=== PATIENT | female | born 1945 | race Caucasian/White ===

== ENCOUNTER 2024-06-09 09:14 | Emergency (ER) | payer MEDICARE, SELFPAY ==
[2024-06-09] VITALS (10 sets, daily range): BP systolic 78–127; BP diastolic 39–74; PULSE 67–73; RESP 15–16; TEMP 36.4–36.6; O2SAT 95–100; BMI 23.8
--- NOTE | 2024-06-09 09:18 | XRR_ITS ---
PROCEDURE INFORMATION: Exam: XR Chest Exam date and time: 06/09/2024 10:04 AM Age: 78 years old Clinical indication: Other: Vomiting blood TECHNIQUE: Imaging protocol: Radiologic exam of the chest. Views: 1 view. COMPARISON: No relevant prior studies available. FINDINGS: Lungs: Unremarkable. No consolidation. Pleural spaces: Unremarkable. No pleural effusion. No pneumothorax. Heart/Mediastinum: The heart is borderline enlarged. There is calcified plaque involving the aorta. Bones/joints: Unremarkable. XR/XR chest 1V portable [id number] IMPRESSION: 1. Borderline cardiomegaly.
[2024-06-09] MEDS: pantoprazole 40 mg SDV 80 MG IVP (09:27)
[2024-06-09] MEDS: ondansetron 2 mg/ML SDV 2 mL 4 MG IVP (09:29)
[2024-06-09] MEDS: octreotide 100 mcg/mL SDV 50 MCG IVP (09:31)
--- NOTE | 2024-06-09 09:34 | CTR_ITS ---
PROCEDURE INFORMATION: Exam: CT Abdomen And Pelvis Without Contrast Exam date and time: 06/09/2024 10:13 AM Age: 78 years old Clinical indication: Vomiting TECHNIQUE: Imaging protocol: Computed tomography of the abdomen and pelvis without contrast. Radiation optimization: All CT scans at this facility use at least one of these dose optimization techniques: automated exposure control; mA and/or kV adjustment per patient size (includes targeted exams where dose is matched to clinical indication); or iterative reconstruction. COMPARISON: CR (CHEST, ) 06/09/2024 10:04 AM RADIATION DOSE METRICS: Total DLP (mGy-cm): 576.4 FINDINGS: Lungs: Lung bases are clear as visualized. Heart: The heart is borderline enlarged. There is no evidence of a significant pericardial effusion. There is a large amount of calcified plaque involving the coronary vessels. Diaphragm: There is a small hiatal hernia. Liver: The liver has a cirrhotic morphology. The liver otherwise has a normal noncontrast appearance. Gallbladder and biliary ducts: There are gallstones within the gallbladder. There are punctate calcifications regional to the common bile duct which may or may not be within the duct. No definite intra or extrahepatic biliary ductal dilatation is appreciated on this noncontrast exam. Pancreas: Normal. No ductal dilation. Spleen: Normal. No splenomegaly. Adrenal glands: Normal. No mass. Kidneys and ureters: Normal. No hydronephrosis. Stomach and bowel: No dilated loops of large or small bowel is appreciated. There is mild wall thickening involving the ascending colon and hepatic flexure. This could be related to a colitis or hepatic colopathy. Appendix: The appendix is not definitely identified. Intraperitoneal space: Unremarkable. No free air. No significant fluid collection. Vasculature: The visualized portion of the ascending aorta is dilated measuring 4.5 cm in size. The descending thoracic aorta measures 2.8 cm in size. The abdominal aorta is normal in caliber. There is calcified plaque involving the aorta and its branch vessels. Lymph nodes: Unremarkable. No enlarged lymph nodes. Urinary bladder: Unremarkable as visualized. Reproductive: Unremarkable as visualized. Bones/joints: There are postoperative changes involving the proximal femurs. Soft tissues: Unremarkable. CT/CT abdomen pelvis wo con [id number] IMPRESSION: 1. Cirrhotic morphology to the liver. 2. Cholelithiasis. There are tiny punctate calcifications regional to the common bile duct. These may or may not be within the common bile duct. No definite biliary ductal dilatation is identified on this noncontrast exam. If there is a clinical concern for a ductal stone or ductal obstruction, recommend correlation with ERCP or MRCP. 3. Large volume ascites. 4. Mild wall thickening involving the ascending colon and hepatic flexure. This could be related to a colitis or hepatic colopathy. 5. 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
--- NOTE | 2024-06-09 09:35 | W.ED.GIBLEED ---
HPI - GI Bleed General: Chief complaint: GI Bleed Stated complaint: vomiting blood Time Seen by Provider: 06/09/24 09:16 Source: patient Mode of arrival: ambulatory Limitations: no limitations History of Present Illness: 78-year-old female history of cirrhosis here from senior living with hematemesis. Per EMS she had had hematemesis at the senior living had 1 large amount and route. She has some slight confusion does have a history of cirrhosis she denies having any known histories of esophageal varices. Denies any pain blood pressure normal senior living EMS states her pressure was in 80s here is 100/52 currently. Associated symptoms: Reports nausea and vomiting; Denies abdominal pain, chills, fever(s), headache(s) or rash Related Data Allergies Allergy/AdvReac Type Severity Reaction Status Date / Time No Known Allergies Allergy Verified 06/09/24 09:22 Review of Systems Const: Denies: fever(s), chills, body aches or change in appetite ENMT: Denies: throat pain or dental pain Card: Denies: chest pain Resp: Denies: dyspnea GI: Reports: nausea and vomiting; Denies: abdominal pain or diarrhea : Denies: dysuria Musc: Denies: neck pain or back pain Skin/Breast: Denies: rash Neuro: Denies: headache(s) Physical Exam Const: COMMON NORMALS: patient oriented x3 GENERAL APPEARANCE: ill appearing HENMT: COMMON NORMALS: normocephalic and atraumatic HEAD & SCALP: normocephalic and atraumatic Eye: COMMON NORMALS: Equal, round and reactive pupils present and EOMs intact bilaterally PUPIL: Yes Equal, round and reactive pupils present Neck/C-Spine: COMMON NORMALS: full ROM and supple Chest: COMMONS NORMALS: normal inspection of the chest and normal palpation of entire chest wall Resp: COMMON NORMALS: normal respiratory effort, No retractions, No use of accessory muscles and clear to auscultation bilaterally AUSCULTATION: clear to auscultation bilaterally Cardio: COMMON NORMALS: regular rate, regular rhythm and No murmurs present (Cardio) RATE: regular rate RHYTHM: regular rhythm GI: COMMON NORMALS: Normal to inspection, nondistended, normoactive bowel sounds present, Soft to palpation, non-tender and no masses PALPATION: Yes Soft to palpation Extremity: COMMON NORMALS: normal to inspection and full ROM Neuro: COMMON NORMALS: patient oriented x3, moves all extremities and no focal motor deficits Psych: COMMON NORMALS: mental status grossly normal, Normal thought process present and cooperative THOUGHT PROCESS: Normal thought process present Skin: COMMON NORMALS: no rashes or lesions noted and no wounds GENERAL SKIN EXAM: no rashes or lesions noted Course Vital Signs: Vital signs: Vital Signs Temperature 97.7 F 06/09/24 11:16 Pulse Rate 73 06/09/24 11:22 Respiratory Rate 16 06/09/24 11:22 Blood Pressure 124/61 06/09/24 11:22 Pulse Oximetry 100 06/09/24 11:22 Oxygen Delivery Me thod Room Air 06/09/24 11:22 MDM - GI Bleed Medical Decision Making Patient presents here with an upper GI bleed patient has had hypotensive here did give her octreotide Protonix gave her FFP and packed red cells. I spoke to surgeon on-call Dr. Peguero feels patient needs GI due to her history of cirrhosis and possibility of esophageal varices spoke to [facility] will transfer there for higher level of care of GI Medical Records I reviewed the patient's medical records. Lab Data I reviewed the patient's lab results. 06/09/24 09:37 06/09/24 09:37 Radiology Impressions Chest X-Ray 06/09/24 09:18 IMPRESSION: 1. Borderline cardiomegaly. Abdomen/Pelvis CT 06/09/24 09:34 IMPRESSION: 1. Cirrhotic morphology to the liver. 2. Cholelithiasis. There are tiny punctate calcifications regional to the common bile duct. These may or may not be within the common bile duct. No definite biliary ductal dilatation is identified on this noncontrast exam. If there is a clinical concern for a ductal stone or ductal obstruction, recommend correlation with ERCP or MRCP. 3. Large volume ascites. 4. Mild wall thickening involving the ascending colon and hepatic flexure. This could be related to a colitis or hepatic colopathy. 5. 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 Laboratory Results WBC 4.66 10^3/uL (3.29-11.43) 06/09/24 09:37 RBC 2.81 10^6/uL (3.85-5.65) L 06/09/24 09:37 Hgb 8.10 g/dL (11.27-16.99) L 06/09/24 09:37 Hct 26.0 % (36-47) L 06/09/24 09:37 MCV 92.5 fl (85-98) 06/09/24 09:37 MCH 28.8 pg (27-33) 06/09/24 09:37 MCHC 31.2 g/dL (30-55) 06/09/24 09:37 RDW 15.3 % (12.1-15.1) H 06/09/24 09:37 Plt Count 222 10^3/cmm (157-399) 06/09/24 09:37 MPV 10.1 fL (7.4-10.4) 06/09/24 09:37 Neut % (Auto) 71.5 % 06/09/24 09:37 Lymph % (Auto) 17.4 % 06/09/24 09:37 [place] % (Auto) 8.2 % 06/09/24 09:37 Eos % (Auto) 1.7 % 06/09/24 09:37 Baso % (Auto) 0.6 % 06/09/24 09:37 Neut # (Auto) 3.33 10^3/uL (1.8-7.7) 06/09/24 09:37 Lymph # (Auto) 0.8 10^3/uL (0.8-4.8) 06/09/24 09:37 [place] # (Auto) 0.4 10^3/uL (0.2-0.9) 06/09/24 09:37 Eos # (Auto) 0.1 10^3/uL (0.0-0.8) 06/09/24 09:37 Baso # (Auto) 0.0 10^3/uL (0.0-0.1) 06/09/24 09:37 Nucleated RBC % (auto) 0 % 06/09/24 09:37 Nucleated RBCs # 0.0 /100WBC 06/09/24 09:37 PT 15.10 SECONDS (12.1-14.9) H 06/09/24 09:37 INR 1.12 (0.8-1.2) 06/09/24 09:37 Sodium 134 mmol/L (136-145) L 06/09/24 09:37 Potassium 5.7 mmol/L (3.5-5.1) H 06/09/24 09:37 Chloride 103 mmol/L (98-107) 06/09/24 09:37 Carbon Dioxide 17 mmol/L (22-29) L 06/09/24 09:37 Anion Gap 19.7 (5-19) H 06/09/24 09:37 BUN 54 mg/dL (8-23) H 06/09/24 09:37 Creatinine 2.9 mg/dL (0.5-0.9) H 06/09/24 09:37 GFR Calculation Not Reportable 06/09/24 09:37 Glucose 126 mg/dL (65-115) H 06/09/24 09:37 Calculated Osmolality 294 mOsm/kg (285-295) 06/09/24 09:37 Calcium 8.2 mg/dL (8.5-10.5) L 06/09/24 09:37 Total Bilirubin 0.4 mg/dL (0.15-1.2) 06/09/24 09:37 AST 35 U/L (0-32) H 06/09/24 09:37 ALT 18 U/L (0-33) 06/09/24 09:37 Alkaline Phosphatase 109 U/L (35-105) H 06/09/24 09:37 Total Protein 6.3 g/dL (6.6-8.7) L 06/09/24 09:37 Albumin 2.6 g/dL (3.5-5.2) L 06/09/24 09:37 Globulin 3.7 g/dL (1.3-4.6) 06/09/24 09:37 Blood Type AB Positive 06/09/24 09:35 Rho(D) Type Rh positive 06/09/24 09:35 Antibody Screen Negative 06/09/24 09:35 Crossmatch See Detail 06/09/24 09:35 All radiology interpretation(s) finalized by discharge Critical Care Time Critical Care Time: Critical Care Time: Yes Total Critical Care Time: 50 Attestation: The high probability of a clinically significant, sudden or life threatening deterioration of the patient'sgi system(s) required my full and direct attention, intervention and personal management. The critical care time is as shown. This time is in addition to time spent performing any reported procedures but includes the following: [x] Data and vital sign review and interpretation [x] Patient assessment, examination and intervention [x] Documentation [x] Medication orders and management Discharge Plan Discharge Patient Disposition: Xfer Short-Term Hosp Clinical Impression: Upper gastrointestinal hemorrhage Condition: Stable Referrals: Henry Villanueva DO [Primary Care Provider] - Print Language: Setswana Coding Level of Care Code ED Marine Tower Operator for Paulina Foster
[2024-06-09 09:44] LABS: Basophils % 0.6 %; Eosinophils # 0.1 10^3/uL (0.0-0.8); Eosinophils % 1.7 %; Lymphocytes # 0.8 10^3/uL (0.8-4.8); Lymphocytes % 17.4 %; Mean Corpuscular HGB Conc 31.2 g/dL (30-55); Mean Corpuscular Hemoglobin 28.8 pg (27-33); Mean Corpuscular Volume 92.5 fl (85-98); Mean Platelet Volume 10.1 fL (7.4-10.4); Monocytes # 0.4 10^3/uL (0.2-0.9); Monocytes % 8.2 %; Neutrophils # 3.33 10^3/uL (1.8-7.7); Neutrophils % 71.5 %; Nucleated Red Blood Cells % 0 %; Platelet Count 222 10^3/cmm (157-399); Red Blood Count 2.81 10^6/uL (3.85-5.65); Red Cell Distribution Width 15.3 % (12.1-15.1); White Blood Count 4.66 10^3/uL (3.29-11.43)
[2024-06-09] MEDS: tranexamic acid 1,000 MG/100 ML PREMIX 600 MG IV ×2 (09:53→09:54)
[2024-06-09 10:00] LABS: INR 1.12 (0.8-1.2)
[2024-06-09 10:04] LABS: Alanine Aminotransferase 18 U/L (0-33); Albumin Level 2.6 g/dL (3.5-5.2); Alkaline Phosphatase 109 U/L (35-105); Anion Gap 19.7 (5-19); Blood Urea Nitrogen 54 mg/dL (8-23); Calcium 8.2 mg/dL (8.5-10.5); Carbon Dioxide 17 mmol/L (22-29); Chloride 103 mmol/L (98-107); Creatinine Clr Calc Pharmacy 14.1763; Globulin 3.7 g/dL (1.3-4.6); Glucose 126 mg/dL (65-115); Osmolality Calculated 294 mOsm/kg (285-295); Potassium 5.7 mmol/L (3.5-5.1); Sodium 134 mmol/L (136-145); Total Bilirubin 0.4 mg/dL (0.15-1.2); Total Protein 6.3 g/dL (6.6-8.7)
[2024-06-09 10:05] LABS: Aspartate Amino Transferase 35 U/L (0-32)
[2024-06-09] MEDS: octreotide 500 MCG in sodium chloride 0.9% (100 ml) 100 ML 10.1 MCG IV (11:09)
[2024-06-09] MEDS: sodium chloride 0.9% 500 ML 999 ML IV (11:10)
== END 2024-06-09 13:19 | disposition short-term general hospital (02) ==
PROVIDERS: Emergency Provider Emergency Medicine; PCP Internal Medicine
DX: K92.2 Gastrointestinal hemorrhage, unspecified (principal)
CPT/HCPCS: 36430; 71045; 74176; 80053; 85025; 85610; 86850; 86900; 86920; 86927; 96361; 96374; 96375; 99285; J2354; J2405; J2470; J7040; J9999; P9017; P9040

== ENCOUNTER 2024-09-23 07:57 | Outpatient (CLI) | payer MEDICARE, OTHER, SELFPAY ==
--- NOTE | 2024-09-23 08:03 | USR_ITS ---
PROCEDURE INFORMATION: Exam: US Abdomen; Limited Exam date and time: 09/23/2024 8:14 AM Age: 79 years old Clinical indication: Condition or disease; Liver condition; Cirrhosis; Additional info: Cirrhosis of liver w/ascites TECHNIQUE: Imaging protocol: Real time ultrasound of the abdomen with image documentation. Limited exam focused on the region of clinical interest. COMPARISON: CT abdomen pelvis wo con [id number] 06/09/2024 10:13 AM FINDINGS: Liver: Cirrhotic morphology of the liver. Heterogeneous echotexture. No focal lesion. Appears mildly shrunken. Measures 14.2 cm craniocaudal. Gallbladder: Cholelithiasis. Mild gallbladder wall thickening (5 mm). Pancreas: Pancreas is not seen. Right kidney: Atrophic right kidney. Measures 7.6 cm craniocaudal. Intraperitoneal space: Moderate volume ascites. US/US abdomen limited [id number] IMPRESSION: 1. Cirrhotic morphology of the liver. No focal lesion. 2. Cholelithiasis. Gallbladder wall thickening is nonspecific in the setting of cirrhosis and ascites. 3. Moderate ascites.
== END 2024-09-23 07:58 | disposition home or self-care (01) ==
LOC: RAD 07:58
PROVIDERS: PCP Internal Medicine; Visit Provider Nurse Practitioner
DX: K74.60 Unspecified cirrhosis of liver (principal); K80.20 Calculus of gallbladder without cholecystitis without obstruction; R18.8 Other ascites; R93.2 Abnormal findings on diagnostic imaging of liver and biliary tract; N26.1 Atrophy of kidney (terminal); R93.3 Abnormal findings on diagnostic imaging of other parts of digestive tract
CPT/HCPCS: 76705

== ENCOUNTER 2024-10-10 01:55 | Emergency (ER) | payer MEDICARE, OTHER, SELFPAY ==
[2024-10-10 01:56] VITALS: BP 122/61; PULSE 120; RESP 16; TEMP 36.8; O2SAT 93; BMI 21.9
--- NOTE | 2024-10-10 02:13 | CTR_ITS ---
PROCEDURE INFORMATION: Exam: CT Head Without Contrast Exam date and time: 10/10/2024 3:10 AM Age: 79 years old Clinical indication: Injury or trauma; Fall; Blunt trauma (contusions or hematomas) and laceration; Consciousness not specified; Head, generalized; Additional info: Trauma, lac, fell from bed TECHNIQUE: Imaging protocol: Computed tomography of the head without contrast. Radiation optimization: All CT scans at this facility use at least one of these dose optimization techniques: automated exposure control; mA and/or kV adjustment per patient size (includes targeted exams where dose is matched to clinical indication); or iterative reconstruction. COMPARISON: No relevant prior studies available. RADIATION DOSE METRICS: Total DLP (mGy-cm): 1135.8 FINDINGS: Brain: No acute infarction, hemorrhage, mass, or extra-axial fluid collection is identified. No midline shift. Chronic white matter microangiopathy and generalized atrophy. Cerebral ventricles: No hydrocephalus. Paranasal sinuses: Paranasal sinuses are grossly clear. Mastoid air cells: Mastoid air cells are grossly clear. Bones: Calvarium appears intact. Soft tissues: Unremarkable. CT/CT head wo con* [id number] IMPRESSION: No acute intracranial abnormality.
--- NOTE | 2024-10-10 03:34 | W.ED.FALL ---
HPI - Fall General: Chief Complaint: Fall Stated Complaint: FALL, HEAD LAC Time Seen by Provider: 10/10/24 02:01 History of Present Illness: 79-year-old female brought by EMS after falling out of bed at home. Patient reports ?not too good? and frequent prior falls. Denies shoulder or hip pain after today?s fall. No fever or recent illness. On arrival noted to have a subcentemeter, partial thickness, right frontotemporal scalp laceration, small skin tear of left knee, and multiple bruises/abrasions in various stages of healing. Provider began cleansing wounds; CT head ordered. She denies loss of consciousness and has no other acute complaints. Related Data Home Medications ?Medication ?Instructions ?Recorded ?Confirmed aspirin 81 mg tablet,delayed 81 mg PO DAILY 06/09/24 06/09/24 release (Elder Low Dose Aspirin) bisacodyl 10 mg rectal suppository 10 mg [place] DAILY PRN Constipation 06/09/24 06/09/24 (Dulcolax (bisacodyl)) furosemide 20 mg tablet 20 mg PO DAILY 06/09/24 06/09/24 magnesium hydroxide 400 mg/5 mL 30 ml PO DAILY PRN Constipation 06/09/24 06/09/24 oral suspension (Milk of Magnesia) metoprolol succinate 100 mg 100 mg PO DAILY 06/09/24 06/09/24 tablet,extended release 24 hr oxybutynin chloride 15 mg 15 mg PO DAILY 06/09/24 06/09/24 tablet,extended release 24 hr pantoprazole 40 mg tablet,delayed 40 mg PO DAILY 06/09/24 06/09/24 release potassium chloride 20 mEq 20 meq PO DAILY 06/09/24 06/09/24 tablet,extended release(part/cryst) ramipril 10 mg capsule 10 mg PO DAILY 06/09/24 06/09/24 rosuvastatin 40 mg tablet 40 mg PO DAILY 06/09/24 06/09/24 sodium phosphates 19 gram-7 118 ml W[place] DAILY PRN Constipation 06/09/24 06/09/24 gram/118 mL enema (Fleet Enema) spironolactone 25 mg tablet 25 mg PO DAILY 06/09/24 06/09/24 tramadol 50 mg tablet 50 mg PO DAILY 06/09/24 06/09/24 venlafaxine 37.5 mg 37.5 mg PO DAILY 06/09/24 06/09/24 capsule,extended release 24 hr Allergies Allergy/AdvReac Type Severity Reaction Status Date / Time No Known Allergies Allergy Verified 10/10/24 02:05 Physical Exam Const: COMMON NORMALS: no acute distress, patient oriented x3 and alert HENMT: OTHER: Small laceration to the right parietotemporal scalp with no active bleeding. Laceration is less than 1 cm in length and only partial-thickness and does not require primary repair. Eye: COMMON NORMALS: Equal, round and reactive pupils present, EOMs intact bilaterally and no scleral icterus PUPIL: Yes Equal, round and reactive pupils present Neck/C-Spine: OTHER: Full range of motion of the cervical spine without increase in pain. Resp: COMMON NORMALS: normal respiratory effort and No retractions Cardio: COMMON NORMALS: regular rate, regular rhythm and No murmurs present (Cardio) RATE: regular rate RHYTHM: regular rhythm GI: COMMON NORMALS: Normal to inspection, nondistended, normoactive bowel sounds present, Soft to palpation and non-tender PALPATION: Yes Soft to palpation Back/Pelvis: OTHER: No midline tenderness of the cervical, thoracic, or lumbar spine. No step-off or deformity. Extremity: NARRATIVE EXTREMITY EXAM: All long bones palpated and all joints ranged with no obvious fracture dislocation or deformity. Neuro: COMMON NORMALS: patient oriented x3 SENSORIUM/ORIENTATION: Yes alert Skin: OTHER: Multiple scattered bruises and abrasions. Small skin tear overlying the left knee. Course Vital Signs: Vital signs: Vital Signs Temperature 98.2 F 10/10/24 01:56 Pulse Rate 119 H 10/10/24 04:22 Respiratory Rate 16 10/10/24 01:56 Blood Pressure 128/69 10/10/24 04:22 Pulse Oximetry 95 10/10/24 04:22 Oxygen Delivery Me thod Room Air 10/10/24 01:56 MDM - Fall Medical Decision Making In summary, patient is a generally stable appearing 79-year-old female from shelter seen for fall from bed where she struck her head on a nightstand. CT brain shows nothing acute. There is a very small laceration of the scalp which does not require primary repair. She will be discharged in stable and improved condition with follow-up to primary care as needed. Lab Data Radiology Impressions Head CT 10/10/24 02:13 IMPRESSION: No acute intracranial abnormality. All radiology interpretation(s) finalized by discharge EKG Data EKG 1: Computer generated interpretation: EKG: Time?0430?atrial fibrillation with RVR, rate of 121, no ST segment elevation or depression, no T wave inversions, QTc = 373 Discharge Plan Discharge Condition: Stable Prescriptions: No Action venlafaxine 37.5 mg capsule,extended release 24hr 37.5 mg PO DAILY oxybutynin chloride 15 mg tablet extended release 24hr 15 mg PO DAILY metoprolol succinate 100 mg tablet extended release 24 hr 100 mg PO DAILY aspirin [Elder Low Dose Aspirin] 81 mg Tablet,Delayed Release (Dr/Ec) 81 mg PO DAILY tramadol 50 mg tablet 50 mg PO DAILY spironolactone 25 mg tablet 25 mg PO DAILY potassium chloride 20 mEq tablet,ER particles/crystals 20 meq PO DAILY magnesium hydroxide [Milk of Magnesia] 400 mg/5 mL Suspension 30 ml PO DAILY PRN (Reason: Constipation) bisacodyl [Dulcolax (bisacodyl)] 10 mg Suppository 10 mg [place] DAILY PRN (Reason: Constipation) pantoprazole 40 mg tablet,delayed release (DR/EC) 40 mg PO DAILY Fleet Enema 19-7 gram/118 mL Enema 118 ml W[place] DAILY PRN (Reason: Constipation) furosemide 20 mg tablet 20 mg PO DAILY ramipril 10 mg capsule 10 mg PO DAILY rosuvastatin 40 mg tablet 40 mg PO DAILY Referrals: Henry Villanueva DO [Primary Care Provider, Internal Medicine] Print Language: Maldivian Coding Level of Care Code ED Batch Unloader for Paulina Foster
[2024-10-10 04:22] VITALS: BP 128/69; PULSE 119; O2SAT 95
--- NOTE | 2024-10-10 04:30 | ECG_ITS ---
Iterable Test Date: 2024-10-10 Pat Name: Petty Webb Department: Room: Gender: Female [employer] Insurance Claim Adjuster: : 1945 Requested By: Neel Eid Order Number: [id number] Jere MD: ROCCO GORMAN Measurements Intervals [place] Rate: 121 P: 0 SD: 0 QRS: -2 QRSD: 83 T: 95 QT: 301 QTc: 427 Interpretive Statements ATRIAL FIBRILLATION WITH RAPID VENTRICULAR RESPONSE LOW QRS VOLTAGE IN PRECORDIAL LEADS [QRS DEFLECTION < 1.0 mV IN CHEST LEADS] ABNORMAL QRS-T ANGLE [QRS-T AXIS DIFFERENCE > 60] No previous ECG available for comparison Electronically Signed On 10-12-2024 16:12:49 CDT by ROCCO GORMAN [email or web address]
[2024-10-10 05:14] VITALS: BP 143/95; PULSE 96; O2SAT 96
[2024-10-10 07:57] VITALS: BP 109/49; PULSE 118; RESP 16; O2SAT 95
== END 2024-10-10 08:01 | disposition home or self-care (01) ==
PROVIDERS: Emergency Provider Student in an Organized Health Care Education/Training Program; PCP Internal Medicine
DX: S01.01XA Laceration without foreign body of scalp, initial encounter (principal); S81.012A Laceration without foreign body, left knee, initial encounter; W06.XXXA Fall from bed, initial encounter; Z91.81 History of falling; Z79.82 Long term (current) use of aspirin; Z79.899 Other long term (current) drug therapy
CPT/HCPCS: 70450; 93005; 99284

== ENCOUNTER 2024-10-12 11:10 | Inpatient (IN) | payer MEDICARE, OTHER, MEDICAID, SELFPAY ==
[2024-10-12] VITALS (15 sets, daily range): BP systolic 106–137; BP diastolic 32–73; PULSE 89–109; RESP 16–22; TEMP 36.8; O2SAT 90–100
--- NOTE | 2024-10-12 11:18 | W.ED.ABDPA2 ---
HPI - Abdominal Pain General: Chief Complaint: Altered Mental Status Stated Complaint: ams Time Seen by Provider: 10/12/24 11:11 History of Present Illness: Patient is an elderly female transferred from [facility] for evaluation of altered mental status. Per EMS report, patient is more altered than her baseline, though she can hold conversation but is slow to respond. Patient has not had a paracentesis in approximately one month, though snf staff reports current mental status is at baseline. Patient denies abdominal pain. No reported fever. Patient is temporally disoriented, believing the year is , though she correctly identified the current president as Presradha Crawford and knew her month and day but stated incorrect year. Related Data Home Medications ?Medication ?Instructions ?Recorded ?Confirmed aspirin 81 mg tablet,delayed 81 mg PO DAILY 06/09/24 06/09/24 release (Elder Low Dose Aspirin) bisacodyl 10 mg rectal suppository 10 mg GA DAILY PRN Constipation 06/09/24 06/09/24 (Dulcolax (bisacodyl)) furosemide 20 mg tablet 20 mg PO DAILY 06/09/24 06/09/24 magnesium hydroxide 400 mg/5 mL 30 ml PO DAILY PRN Constipation 06/09/24 06/09/24 oral suspension (Milk of Magnesia) metoprolol succinate 100 mg 100 mg PO DAILY 06/09/24 06/09/24 tablet,extended release 24 hr oxybutynin chloride 15 mg 15 mg PO DAILY 06/09/24 06/09/24 tablet,extended release 24 hr pantoprazole 40 mg tablet,delayed 40 mg PO DAILY 06/09/24 06/09/24 release potassium chloride 20 mEq 20 meq PO DAILY 06/09/24 06/09/24 tablet,extended release(part/cryst) ramipril 10 mg capsule 10 mg PO DAILY 06/09/24 06/09/24 rosuvastatin 40 mg tablet 40 mg PO DAILY 06/09/24 06/09/24 sodium phosphates 19 gram-7 118 ml GA DAILY PRN Constipation 06/09/24 06/09/24 gram/118 mL enema (Fleet Enema) spironolactone 25 mg tablet 25 mg PO DAILY 06/09/24 06/09/24 tramadol 50 mg tablet 50 mg PO DAILY 06/09/24 06/09/24 venlafaxine 37.5 mg 37.5 mg PO DAILY 06/09/24 06/09/24 capsule,extended release 24 hr Allergies Allergy/AdvReac Type Severity Reaction Status Date / Time No Known Allergies Allergy Verified 10/10/24 02:05 Review of Systems General: Reports: ROS unobtainable due to mental status Physical Exam Const: COMMON NORMALS: no acute distress, average body habitus, no limitations, healthy appearing and well nourished HENMT: COMMON NORMALS: normocephalic HEAD & SCALP: normocephalic Eye: COMMON NORMALS: Equal, round and reactive pupils present, EOMs intact bilaterally and conjunctivae normal CONJUNCTIVA: Yes conjunctivae normal PUPIL: Yes Equal, round and reactive pupils present Neck/C-Spine: COMMON NORMALS: full ROM, no lymphadenopathy, supple, no JVD, Thyroid normal and No carotid bruits THYROID: Thyroid normal Resp: COMMON NORMALS: normal respiratory effort, No retractions, No use of accessory muscles, clear to auscultation bilaterally and percussion normal AUSCULTATION: clear to auscultation bilaterally PERCUSSION: percussion normal Cardio: COMMON NORMALS: no JVD GI: OTHER: Abdomen is distended and tympanic to percussion with fluid wave. Non-tender. : COMMON NORMALS: Yes no CVA tenderness BLADDER/KIDNEY EXAM: Yes no CVA tenderness Back/Pelvis: COMMON NORMALS: no CVA tenderness Extremity: COMMON NORMALS: normal to inspection, full ROM, capillary refill normal, no joint enlargement, no clubbing, cyanosis or edema, no calf tenderness and no pedal edema Neuro: OTHER: Alert, confused. Skin: COMMON NORMALS: no rashes or lesions noted, no wounds, turgor normal, no jaundice, no petechiae and no mottling GENERAL SKIN EXAM: no rashes or lesions noted and turgor normal Course Vital Signs: Vital signs: Vital Signs Temperature 98.2 F 10/12/24 11:12 Pulse Rate 103 H 10/12/24 14:32 Respiratory Rate 18 10/12/24 14:32 Blood Pressure 106/57 10/12/24 14:32 Pulse Oximetry 100 10/12/24 14:32 Oxygen Delivery Me thod Room Air 10/12/24 11:12 MDM - Abdominal Pain Medical Decision Making 1. Altered Mental Status: - Likely multifactorial etiology including possible hepatic encephalopathy given history of ascites requiring paracentesis - Will obtain basic labs including CBC, CMP, ammonia level - Will review medication list for potential contributors - Will obtain head CT to rule out intracranial pathology 2. Ascites: - Will perform bedside ultrasound to assess for ascites - There was significant fluid present, will perform diagnostic and therapeutic paracentesis and empirically cover for SBP with 2g IV ceftriaxone - Will send ascitic fluid for cell count, culture, and analysis 3. Hypotension with lactic acidosis: - Responded to initial fluid bolus - will continue IVF and Albumin - Will continue to monitor hemodynamics - Will assess volume status during examination and ultrasound 4. Disposition: - Needs admitted to hospital. She has a DNR order in place I talked to her son Torin who was very reasonable and expectations and would like to continue with medical therapy but holding any heroic or aggressive interventions such as dialysis, intubation or transfer. I talked to the hospitalist Dr. Dempsey who was agreeable to admission. Lab Data 10/12/24 12:10 10/12/24 12:10 Labs/Radiology: Radiology Impressions Chest X-Ray 10/12/24 11:33 IMPRESSION: Mild bibasilar atelectasis/opacities in the setting of low lung volumes. Laboratory Results WBC 8.79 10^3/uL (3.29-11.43) 10/12/24 12:10 RBC 2.84 10^6/uL (3.85-5.65) L 10/12/24 12:10 Hgb 8.60 g/dL (11.27-16.99) L 10/12/24 12:10 Hct 26.1 % (36-47) L 10/12/24 12:10 MCV 91.9 fl (85-98) 10/12/24 12:10 MCH 30.3 pg (27-33) 10/12/24 12:10 MCHC 33.0 g/dL (30-55) 10/12/24 12:10 RDW 16.1 % (12.1-15.1) H 10/12/24 12:10 Plt Count 146 10^3/cmm (157-399) L 10/12/24 12:10 MPV 9.7 fL (7.4-10.4) 10/12/24 12:10 Neut % (Auto) 91.9 % 10/12/24 12:10 Lymph % (Auto) 2.4 % 10/12/24 12:10 [place] % (Auto) 5.0 % 10/12/24 12:10 Eos % (Auto) 0.0 % 10/12/24 12:10 Baso % (Auto) 0.1 % 10/12/24 12:10 Neut # (Auto) 8.08 10^3/uL (1.8-7.7) H 10/12/24 12:10 Lymph # (Auto) 0.2 10^3/uL (0.8-4.8) L 10/12/24 12:10 [place] # (Auto) 0.4 10^3/uL (0.2-0.9) 10/12/24 12:10 Eos # (Auto) 0.0 10^3/uL (0.0-0.8) 10/12/24 12:10 Baso # (Auto) 0.0 10^3/uL (0.0-0.1) 10/12/24 12:10 Nucleated RBC % (auto) 0 % 10/12/24 12:10 Nucleated RBCs # 0.0 /100WBC 10/12/24 12:10 ESR 61 mm/hr (0-15) H 10/12/24 12:10 Sodium 130 mmol/L (136-145) L 10/12/24 12:10 Potassium 5.5 mmol/L (3.5-5.1) H 10/12/24 12:10 Chloride 91 mmol/L (98-107) L 10/12/24 12:10 Carbon Dioxide 11 mmol/L (22-29) L 10/12/24 12:10 Anion Gap 33.5 (5-19) H 10/12/24 12:10 BUN 42 mg/dL (8-23) H 10/12/24 12:10 Creatinine 5.1 mg/dL (0.5-0.9) H 10/12/24 12:10 GFR Calculation Not Reportable 10/12/24 12:10 Glucose 88 mg/dL (65-115) 10/12/24 12:10 Calculated Osmolality 280 mOsm/kg (285-295) L 10/12/24 12:10 Lactic Acid 8.3 mmol/L (0.5-2.2) H* 10/12/24 12:10 Calcium 8.4 mg/dL (8.5-10.5) L 10/12/24 12:10 Total Bilirubin 1.3 mg/dL (0.15-1.2) H 10/12/24 12:10 AST 253 U/L (0-32) H 10/12/24 12:10 ALT 72 U/L (0-33) H 10/12/24 12:10 Alkaline Phosphatase 162 U/L (35-105) H 10/12/24 12:10 Ammonia 70 umol/L (11-51) H 10/12/24 12:10 Total Protein 6.3 g/dL (6.6-8.7) L 10/12/24 12:10 Albumin 2.4 g/dL (3.5-5.2) L 10/12/24 12:10 Globulin 3.9 g/dL (1.3-4.6) 10/12/24 12:10 TSH 3.10 uIU/mL (0.27-4.20) 10/12/24 12:10 Urine Color Angelina (Yellow) A 10/12/24 14:02 Urine Appearance Turbid (CLEAR) A 10/12/24 14:02 Urine pH 5.5 (5-7) 10/12/24 14:02 Ur Specific [place] 1.015 (1.005-1.030) 10/12/24 14:02 Urine Protein 2+ (Negative) A 10/12/24 14:02 Urine Glucose (UA) Negative (Normal) 10/12/24 14:02 Urine Ketones Negative (Negative) 10/12/24 14:02 Urine Blood 3+ (Negative) A 10/12/24 14:02 Urine Nitrate Positive (Negative) A 10/12/24 14:02 Urine Bilirubin Negative (Negative) 10/12/24 14:02 Urine Urobilinogen 0.2 mg/dL (Negative) 10/12/24 14:02 Ur Leukocyte Esterase 2+ (Negative) A 10/12/24 14:02 Urine RBC 10-15 /hpf (0-2) H 10/12/24 14:02 Urine WBC 80-100 /hpf (0-5) H 10/12/24 14:02 Ur Squamous Epith Cells 15-25 /hpf (0-5) H 10/12/24 14:02 Amorphous Sediment Not Reportable 10/12/24 14:02 Urine Bacteria 2+ /hpf (NONE) H 10/12/24 14:02 Hyaline Casts 5-10 /lpf H 10/12/24 14:02 Urine Mucus 2+ /hpf 10/12/24 14:02 Urine Yeast 1+ /hpf H 10/12/24 14:02 Fluid Albumin 1.1 g/dL 10/12/24 12:48 Pleural Total Protein 2.1 g/dL 10/12/24 12:48 Pleural LDH 111 U/L 10/12/24 12:48 Pleural Glucose 99.0 mg/dL 10/12/24 12:48 All radiology interpretation(s) finalized by discharge ED provider radiology interpretation(s): Chest x-ray shows low lung volumes Other Data Procedure: Paracentesis Description of the procedure: After emergency consent was implied the patient had ultrasound-guided paracentesis performed on the left lower quadrant. Ultrasound was used to identify large pocket of ascitic fluid and she was sterilely prepped and draped and 1% lidocaine introduced to the skin followed by an 11 blade incision that allowed a needle with the introducer and catheter to be placed into the abdominal cavity. Straw-colored fluid returned and sent for evaluation 2500 mL was removed from the patient and she tolerated the procedure well and albumin was ordered post-procedure. Several national guidelines and recommendations suggest that IV albumin in addition to antibiotic therapy particularly in patients with renal dysfunction has been shown to reduce the incidence of renal failure and improve survival and show significant reduction in mortality when compared to antibiotics alone. Discharge Plan Discharge Patient Disposition: Home Clinical Impression: Altered mental status, Delirium due to general medical condition, Acute hepatic encephalopathy, STEPHANIE (acute kidney injury), Acute lactic acidosis Condition: Stable Discharge Orders: Discharge ED (Routine); Ordered 10/12/24 Ordered By: Brayan Carranza Coding Level of Care Code ED Pocket Grinder Operator for Paulina Foster
--- NOTE | 2024-10-12 11:33 | XRR_ITS ---
PROCEDURE INFORMATION: Exam: XR Chest Exam date and time: 10/12/2024 11:45 AM Age: 79 years old Clinical indication: Dyspnea; Additional info: AMS TECHNIQUE: Imaging protocol: Radiologic exam of the chest. Views: 1 view. COMPARISON: CR XR chest 1V portable [id number] 06/09/2024 10:04 AM FINDINGS: Lungs: Lung volumes are low. Mild atelectasis or opacity at the lung bases. Pleural spaces: Unremarkable. No pleural effusion. No pneumothorax. Heart/Mediastinum: Unremarkable. No cardiomegaly. Bones/joints: Unremarkable. XR/XR chest 1V portable [id number] IMPRESSION: Mild bibasilar atelectasis/opacities in the setting of low lung volumes.
--- OUTSIDE RECORDS SUMMARY | 2024-10-12 11:41 | XMS_ITS ---
Author Organization Unknown Medications Date Medication Dosage DosageUnit StartDate StopDate StopReason Active DoseQuantity DoseUnit Dispense DispenseUnit Refills NdcCode DrugCode PharmacyId IsPrescription MappedMedication Srcstatus Custom 025 12:00 :00 AM benzonatate 100 mg capsule 30.0000 00 10/25/2023 12:00:00 AM 1 30.013887 0 [id number] 56 460 [id number] [facility] -02230 P ACTIVE 025 12:00 :00 AM cefdinir 300 mg capsule 10.0000 00 10/16/2023 12:00:00 AM 1 10.222632 0 506018 16 006 [id number] [facility] -[id number] P ACTIVE 025 12:00 :00 AM venlafaxine er 37.5 mg tablet,exte nded release 24 hr 1 0 [id number] [facility] 025 12:00 :00 AM methylpredn isolone 4 mg tablets in a dose pack 21.0000 00 10/25/2023 12:00:00 AM 1 21.639465 0 783431 59 315 [facility] -07918 P ACTIVE 025 12:00 :00 AM azithromyci n 250 mg tablet 6.23537 0 10/25/2023 12:00:00 AM 1 6.173070 0 5396284 7 020 [id number] [facility] -14127 P ACTIVE 025 12:00 :00 AM venlafaxine er 37.5 mg capsule,ext ended release 24 hr 30.0000 00 10/16/2023 12:00:00 AM 1 30.026598 0 527363 38 405 [id number] [facility] -38923 P ACTIVE
[2024-10-12 12:28] LABS: Hematocrit 26.1 % (36-47); Hemoglobin 8.60 g/dL (11.27-16.99); Mean Corpuscular HGB Conc 33.0 g/dL (30-55); Mean Corpuscular Hemoglobin 30.3 pg (27-33); Mean Corpuscular Volume 91.9 fl (85-98); Nucleated Red Blood Cells % 0 %; Platelet Count 146 10^3/cmm (157-399); Red Blood Count 2.84 10^6/uL (3.85-5.65); White Blood Count 8.79 10^3/uL (3.29-11.43)
[2024-10-12 12:43] LABS: Ammonia 70 umol/L (11-51)
[2024-10-12 12:55] LABS: Alanine Aminotransferase 72 U/L (0-33); Albumin Level 2.4 g/dL (3.5-5.2); Alkaline Phosphatase 162 U/L (35-105); Anion Gap 33.5 (5-19); Aspartate Amino Transferase 253 U/L (0-32); Blood Urea Nitrogen 42 mg/dL (8-23); Calcium 8.4 mg/dL (8.5-10.5); Carbon Dioxide 11 mmol/L (22-29); Chloride 91 mmol/L (98-107); Globulin 3.9 g/dL (1.3-4.6); Glucose 88 mg/dL (65-115); Osmolality Calculated 280 mOsm/kg (285-295); Potassium 5.5 mmol/L (3.5-5.1); Sodium 130 mmol/L (136-145); Thyroid Stimulating Hormone 3.10 uIU/mL (0.27-4.20); Total Protein 6.3 g/dL (6.6-8.7)
[2024-10-12] MEDS: lactulose oral liq 20 gm/30 mL UDC 30 GM PO (13:37)
[2024-10-12] MEDS: cefTRIAXone 2,000 mg SDV 2000 MG IVP (13:37)
[2024-10-12 14:12] LABS: Lactic Sepsis W/Reflex 8.3 mmol/L (0.5-2.2)
[2024-10-12 14:19] LABS: Glucose Urine UA Negative (Normal); Nitrate Urine Positive (Negative); Specific Gravity, Urine 1.015 (1.005-1.030)
[2024-10-12 14:56] LABS: Add Urine Microscopic? YES; UA Manual Slide Review YES; UA Slide Review UA Slide Review Perf
[2024-10-12 14:58] LABS: Reflex Lactate Order REFLEX LACTIC ORDERD
[2024-10-12 16:01] LABS: Lactic Acid level (Lactate) 7.5 mmol/L (0.5-2.2)
--- NOTE | 2024-10-12 17:15 | PM.CONSULT ---
Providers/Reason For Consult Consulting Physician/Specialty*: kommana/Nephrology Reason for Consult*: STEPHANIE Attending Physician: Panchito Dempsey MD Primary Care Provider: Henry Villanueva DO History of Present Illness History of Present Illness Petty Webb is a 79 year old female Patient is a 79-year-old female with past medical history of known liver cirrhosis send currently in prison resident was sent to the emergency department due to altered mental status patient was not able to provide much history. Home medications included Lasix 20 mg a day potassium chloride 20 mEq a day lisinopril 10 mg a day and aspirin. Further evaluation in the ER patient was noted to have anemia with a hemoglobin of 8.6, sodium was 130 potassium was 5.5 creatinine was 5.1 bicarb late level was 11 Kowalski catheter was placed and so far patient was anuric. Chest x-ray clear. Patient admitted to ICU for further management.. Review of Systems Narrative: negative Medications/Allergies Home Medications ?Medication ?Instructions ?Recorded ?Confirmed ?Last Taken ?Type aspirin 81 mg tablet,delayed 81 mg PO DAILY 06/09/24 10/13/24 10/12/24 09:00 History release (Elder Low Dose Aspirin) furosemide 20 mg tablet 20 mg PO DAILY 06/09/24 10/13/24 10/12/24 08:00 History magnesium hydroxide 400 mg/5 mL 30 ml PO DAILY PRN Constipation 06/09/24 10/13/24 Unknown History oral suspension (Milk of Magnesia) metoprolol succinate 100 mg 25 mg PO DAILY 06/09/24 10/13/24 10/12/24 21:00 History tablet,extended release 24 hr pantoprazole 40 mg tablet,delayed 40 mg PO DAILY 06/09/24 10/13/24 10/12/24 09:00 History release rosuvastatin 40 mg tablet 40 mg PO DAILY 06/09/24 10/13/24 10/12/24 08:00 History spironolactone 25 mg tablet 50 mg PO DAILY 06/09/24 10/13/24 10/12/24 06:00 History 50 tramadol 50 mg tablet 50 mg PO DAILY 06/09/24 10/13/24 06/08/24 History acetaminophen 325 mg tablet 650 mg feeding tube Q4H PRN 10/13/24 10/13/24 Unknown History (Tylenol) pain/fever benzonatate 100 mg capsule 100 mg PO TID 10/13/24 10/13/24 10/11/24 08:52 History carboxymethylcellulose sodium 1 % 1 drp ophthalmic (eye) BID 10/13/24 10/13/24 10/12/24 09:00 History eye liquid gel drops (Refresh Liquigel) folic acid 1 mg tablet 1 mg PO DAILY 10/13/24 10/13/24 10/12/24 09:00 History polyethylene glycol 3350 17 gram 17 g PO DAILY 10/13/24 10/13/24 10/12/24 09:00 History oral powder packet (Miralax) thiamine HCl (vitamin B1) 100 mg 100 mg PO DAILY 10/13/24 10/13/24 10/12/24 09:00 History tablet Allergies Allergy/AdvReac Type Severity Reaction Status Date / Time No Known Allergies Allergy Verified 10/10/24 02:05 Current Medications Generic Name Dose Route Start Last Admin Trade Name Freq PRN Reason Stop Dose Admin Sodium Chloride 1,000 mls @ 100 mls/hr 10/12/24 15:00 10/12/24 15:06 Sodium Chloride 0.9% IV 100 mls/hr .Q10H ANTONIO Administration Sodium Bicarbonate 150 meq/ 1,150 mls @ 100 mls/hr 10/12/24 09:45 10/12/24 17:14 Dextrose IV 100 mls/hr .[id number] ANTONIO Administration PFSH Acute PFSH: Social History (Updated 10/12/24 @ 19:47 by Panchito Dempsey MD) Additional social history: Patient told me she wanted DNR status but did want full treatment and would consider dialysis as of 10/12/2024 with Panchito Dempsey MD. She stated that her decision maker is Ty her son in the event that she could not make her own decision. She confirmed that she also had a daughter named Ifrah Vitals/I&O/Wt Last Vital Signs Temp 98.2 F 10/12/24 11:12 Pulse 98 10/12/24 16:49 Resp 16 10/12/24 16:49 BP 122/55 10/12/24 16:49 Pulse Ox 99 10/12/24 16:49 O2 Del Method Room Air 10/12/24 16:49 10/12/24 10/12/24 10/12/24 06:59 14:59 22:59 Intake Total 50 / 50 Balance 50 / 50 Physical Exam Narrative: awake , alert , confused PPERLA S1S2 RRR per report Lungs clear per report Abd - soft , non tender Ext - negative Data 10/13/24 03:32 10/13/24 03:32 Micro: Microbiology 10/12/24 12:48 Gram Stain - Final Pleural Fluid 10/12/24 13:30 Blood Culture - Preliminary Blood SPECIMEN COLLECTED 10/12/24 13:20 Blood Culture - Preliminary Blood SPECIMEN COLLECTED A&P Assessment and plan 1. STEPHANIE (acute kidney injury): Plan: 1. Acute on chronic kidney disease: Prior creatinine was 2.9 in May 2024. Now has STEPHANIE with a creatinine of 5.1 on presentation likely prerenal and ATN in the setting of possible acute infection. HRS possible -Check urine electrolytes and check CPK -Add IV albumin -UA with 2+ protein and 3+ blood in the setting of UTI -Placed on IV bicarbonate drip, if remains an hide uric despite IV fluids overnight, need to discuss dialysis with family. -Avoid contrast studies 2. Severe metabolic acidosis, due to lactic acidosis and STEPHANIE, bicarbonate drip as above\ 3. UTI, management per primary team 4. Altered mental status, likely metabolic encephalopathy, baseline not known 5. Liver cirrhosis, with history of prior paracentesis Patient evaluated using audiovisual cart. Time spent 40 minutes. PDMP PDMP Reviewed: Not Reviewed Coding Level of Care Code Acute Code for Chg Fwd Diagnoses STEPHANIE (acute kidney injury) N17.9
[2024-10-12] MEDS: albumin 50 G/200 ML BAG 60 G IV (17:47)
[2024-10-12] MEDS: heparin 5,000 unit/mL INJ 1 mL 5000 UNIT SUBCUT (17:51)
[2024-10-12 17:57] LABS: Mononuclear %, Pleural Fluid 56 %; Polynuclear Cells, Pleural % 44 %; WBC Pleural Fluid 25.000 /uL (0-1000)
[2024-10-12 17:58] LABS: Appearance, Pleural Fluid CLOUDY (CLEAR); Color, Pleural Fluid Pale Yellow (Pale Yellow)
[2024-10-12 17:59] LABS: PATH Referal YES
--- NOTE | 2024-10-12 18:43 | PC.NURSE ---
Arrived from ED, AO to self and being in hospital in [place] not to year or month
--- NOTE | 2024-10-12 19:44 | PM.HP ---
Providers/Chief Complaint Admitting Physician: Panchito Dempsey MD Primary Care Provider: Henry Villanueva DO Chief Complaint: ams History of Present Illness Petty Webb is a 79 year old female with history of cirrhosis lives at a care home facility and brought in for altered mental status. She was found to be slow to respond and last paracentesis was a month ago. Patient was treated with lactulose in the emergency department and also had paracentesis of 2.5 L fluid. She admitted to some confusion Review of Systems Narrative: Patient denied abdominal pain shortness of breath or chest pain Medications/Allergies Home Medications ?Medication ?Instructions ?Recorded ?Confirmed ?Last Taken ?Type aspirin 81 mg tablet,delayed 81 mg PO DAILY 06/09/24 06/09/24 06/08/24 History release (Elder Low Dose Aspirin) bisacodyl 10 mg rectal suppository 10 mg MI DAILY PRN Constipation 06/09/24 06/09/24 Unknown History (Dulcolax (bisacodyl)) furosemide 20 mg tablet 20 mg PO DAILY 06/09/24 06/09/24 06/08/24 History magnesium hydroxide 400 mg/5 mL 30 ml PO DAILY PRN Constipation 06/09/24 06/09/24 Unknown History oral suspension (Milk of Magnesia) metoprolol succinate 100 mg 100 mg PO DAILY 06/09/24 06/09/24 06/08/24 History tablet,extended release 24 hr oxybutynin chloride 15 mg 15 mg PO DAILY 06/09/24 06/09/24 06/08/24 History tablet,extended release 24 hr pantoprazole 40 mg tablet,delayed 40 mg PO DAILY 06/09/24 06/09/24 06/08/24 History release potassium chloride 20 mEq 20 meq PO DAILY 06/09/24 06/09/24 06/08/24 History tablet,extended release(part/cryst) ramipril 10 mg capsule 10 mg PO DAILY 06/09/24 06/09/24 06/08/24 History rosuvastatin 40 mg tablet 40 mg PO DAILY 06/09/24 06/09/24 06/08/24 History sodium phosphates 19 gram-7 118 ml MI DAILY PRN Constipation 06/09/24 06/09/24 Unknown History gram/118 mL enema (Fleet Enema) spironolactone 25 mg tablet 25 mg PO DAILY 06/09/24 06/09/24 06/08/24 History tramadol 50 mg tablet 50 mg PO DAILY 06/09/24 06/09/24 06/08/24 History venlafaxine 37.5 mg 37.5 mg PO DAILY 06/09/24 06/09/24 06/08/24 History capsule,extended release 24 hr Allergies Allergy/AdvReac Type Severity Reaction Status Date / Time No Known Allergies Allergy Verified 10/10/24 02:05 PFSH Acute PFSH: Social History (Updated 10/12/24 @ 19:47 by Panchito Dempsey MD) Additional social history: Patient told me she wanted DNR status but did want full treatment and would consider dialysis as of 10/12/2024 with Panchito Dempsey MD. She stated that her decision maker is Ty her son in the event that she could not make her own decision. She confirmed that she also had a daughter named Ifrah Vitals/I&O/Wt Last Vital Signs Temp 98.2 F 10/12/24 11:12 Pulse 103 H 10/12/24 17:34 Resp 18 10/12/24 17:34 BP 137/60 10/12/24 17:34 Pulse Ox 99 10/12/24 17:34 O2 Del Method Room Air 10/12/24 18:52 10/12/24 10/12/24 10/12/24 06:59 14:59 22:59 Intake Total 50 / 50 Balance 50 / 50 Weight last 48 hrs Weight 26.308 kg Physical Exam Narrative: General well-developed thin chronically ill-appearing female with abdominal distention sclera not icteric CV regular rate and rhythm Lungs clear to auscultation bilaterally Abdomen positive bowel tones soft distended Calves 1+ edema Urinary Catheter Management: Kowalski: Cath Placed During This Visit: no Reason for Continuing Indwelling Catheter: Accurate Measurement of Urinary Output in Critically Ill Patients Data 10/12/24 12:10 10/12/24 12:10 Micro: Microbiology 10/12/24 12:48 Gram Stain - Final Pleural Fluid 10/12/24 13:30 Blood Culture - Preliminary Blood SPECIMEN COLLECTED 10/12/24 13:20 Blood Culture - Preliminary Blood SPECIMEN COLLECTED A&P Assessment and plan 1. Acute hepatic encephalopathy: Continue with lactulose 2. STEPHANIE (acute kidney injury): Due to elevated potassium spironolactone will be held for now patient to be hydrated as she appears to be volume depleted intravascularly. Suspected hepatorenal syndrome Start albumin and bicarb fluid replacement. I have spoken with Dr. Charles and we formulated treatment plan together 3. Acute lactic acidosis: Treat with bicarb and fluid 4. Altered mental status: Further discussion with patient tomorrow son is coming into town Plan: I spoke with patient as well as patient's son Torin. Torin and his Sister Ifrah favor conservative care confirm DNR status and do not think that patient would tolerate dialysis PDMP PDMP Reviewed: Not Reviewed Attestations Medical Necessity Statement*: Patient admitted to the ICU with lactic acidosis and acute renal failure oliguric with suspected hepatorenal syndrome Coding Level of Care Code 29583 Diagnoses Acute hepatic encephalopathy K76.82 STEPHANIE (acute kidney injury) N17.9 Acute lactic acidosis E87.21 Altered mental status R41.82 Time Spent (min) 55
[2024-10-12 20:53] LABS: Anion Gap 29.2 (5-19); Blood Urea Nitrogen 44 mg/dL (8-23); Calcium 7.8 mg/dL (8.5-10.5); Carbon Dioxide 12 mmol/L (22-29); Chloride 94 mmol/L (98-107); Creatinine Clr Calc Pharmacy 3.6649; Glucose 143 mg/dL (65-115); Osmolality Calculated 284 mOsm/kg (285-295); Potassium 5.2 mmol/L (3.5-5.1); Sodium 130 mmol/L (136-145)
--- NOTE | 2024-10-12 21:01 | PC.NURSE ---
Tel- nephrology with Dr. Hutchins patient visited with video assist. orders to changed rate bicarb to 120 ml/hr and discontinue ns at 100. vitals stable. No urine output.
[2024-10-13] VITALS (28 sets, daily range): BP systolic 82–132; BP diastolic 46–84; PULSE 61–124; RESP 15–27; TEMP 36.2–36.7; O2SAT 95–100
[2024-10-13 04:17] LABS: Mean Corpuscular HGB Conc 33.0 g/dL (30-55); Mean Corpuscular Hemoglobin 28.5 pg (27-33); Mean Corpuscular Volume 86.4 fl (85-98); Nucleated Red Blood Cells % 0 %; Platelet Count 107 10^3/cmm (157-399); Red Blood Count 2.28 10^6/uL (3.85-5.65); White Blood Count 6.88 10^3/uL (3.29-11.43)
[2024-10-13] MEDS: heparin 5,000 unit/mL INJ 1 mL 5000 UNIT SUBCUT (04:19)
[2024-10-13 04:34] LABS: INR 1.45 (0.8-1.2); Prothrombin Time 18.60 SECONDS (12.1-14.9)
[2024-10-13 04:35] LABS: Partial Thromboplastin Time 41.8 SECONDS (23.9-36.7)
[2024-10-13 04:48] LABS: Alanine Aminotransferase 64 U/L (0-33); Albumin Level 3.2 g/dL (3.5-5.2); Alkaline Phosphatase 134 U/L (35-105); Anion Gap 25.8 (5-19); Aspartate Amino Transferase 260 U/L (0-32); Blood Urea Nitrogen 44 mg/dL (8-23); Calcium 8.0 mg/dL (8.5-10.5); Carbon Dioxide 19 mmol/L (22-29); Chloride 92 mmol/L (98-107); Creatinine Clr Calc Pharmacy 3.4574; Globulin 2.7 g/dL (1.3-4.6); Glucose 162 mg/dL (65-115); Magnesium 2.2 mg/dL (1.7-2.3); Osmolality Calculated 289 mOsm/kg (285-295); Potassium 4.8 mmol/L (3.5-5.1); Sodium 132 mmol/L (136-145); Total Protein 5.9 g/dL (6.6-8.7)
[2024-10-13 04:56] LABS: Hematocrit 19.7 % (36-47); Hemoglobin 6.50 g/dL (11.27-16.99)
[2024-10-13 06:27] LABS: C.Diff PCR (Lab) NEGATIVE (Negative)
--- NOTE | 2024-10-13 09:58 | P.PN_ITS ---
Subjective 2 Subjective: discussed with family via video Medications: Reviewed: Yes Vitals/I&O/Wt Last Vital Signs Temp 97.4 F L 10/14/24 09:00 Pulse 68 10/14/24 09:00 Resp 15 10/14/24 09:00 BP 109/58 10/14/24 09:00 Pulse Ox 96 10/14/24 09:00 O2 Del Method Room Air 10/14/24 09:00 10/13/24 10/14/24 10/14/24 22:59 06:59 14:59 Intake Total 666 / 1250 0 / 1250 747.5 / 747.5 Output Total 20 Balance 646 / 1230 -20 / 1210 747.5 / 747.5 Weight last 48 hrs Weight 59.874 kg Weight 58.876 kg Weight 26.308 kg Physical Exam 2 Narrative: Lethargic, room air, no acute distress PERRLA No JVD S1-S2 regular rate and rhythm per report Lungs with bilateral crackles per report Abdomen distended sof+ ascites Has no edema Urinary Catheter Management: Kowalski: Cath Placed During This Visit: no Reason for Continuing Indwelling Catheter: Accurate Measurement of Urinary Output in Critically Ill Patients Data 10/14/24 06:11 10/14/24 06:11 Micro: Microbiology 10/12/24 12:48 Gram Stain - Final Pleural Fluid Body Fluid Culture - Preliminary 10/12/24 13:30 Blood Culture - Preliminary Blood NEGATIVE TO DATE 10/12/24 13:20 Blood Culture - Preliminary Blood NEGATIVE TO DATE A&P Assessment and plan 1. STEPHANIE (acute kidney injury): Plan: 1. Acute on chronic kidney disease: Prior creatinine was 2.9 in May 2024. Now has STEPHANIE with a creatinine of 5.1 on presentation likely prerenal and ATN in the setting of possible acute infection. HRS possible -Noted mildly elevated CPK levels - Currently on IVFs -UA with 2+ protein and 3+ blood in the setting of UTI - Given liver cirrhosis with portal hypertension , patient will not tolerate dialysis. Discussed with patient's family at bedside on a video and explained overall poor prognosis 2. Severe metabolic acidosis, due to lactic acidosis and STEPHANIE, status post bicarbonate drip 3. UTI, management per primary team 4. Altered mental status, likely metabolic encephalopathy, baseline not known 5. Liver cirrhosis, with history of prior paracentesis, Patient evaluated using audiovisual cart. Time spent 40 minutes. PDMP PDMP Reviewed: Not Reviewed Attestations 2 Medical Necessity Statement*: per arsen Coding Level of Care Code Acute Code for Chg Fwd Diagnoses STEPHANIE (acute kidney injury) N17.9
[2024-10-13] MEDS: venlafaxine ER (24HR) 37.5 mg Capsule PO (10:15)
[2024-10-13] MEDS: metoprolol succinate ER (24 HR) 100 mg Tablet PO (10:15)
[2024-10-13] MEDS: lactulose oral liq 20 gm/30 mL UDC 10 GM PO (10:17)
--- NOTE | 2024-10-13 11:01 | PM.PN ---
Subjective Subjective: 79-year-old female admitted to the ICU with oliguric acute renal failure. Son Torin and his significant other Rayshawn are good historians and present at bedside. Rayshawn tells me that patient lived in [facility] for 17 years and her daughter was Shy Monroy DO in [place]. March 2023 her Fox . May 2023 she had a knee replacement and June 2023 required to revision. She went to rehab in [place] then returned back to her home in August under the care of Torin and Rayshawn. September 2023 patient required assisted living in [place]. She was initially unhappy but ultimately was going to meals 3 times a day knew everybody and was happy until May when her confusion made her no longer qualified to be at assisted living. She was sent to detention facility and [place] called [facility]. Since that time she has deteriorated until the last 1 month when she has confusion and sleeps through gas and does not always go down to eat because she is sleeping all the time. Notably she had paracentesis she thinks started March [address] Monroy and then continued intermittently here at [facility] sent in by care home physician Alex Villanueva. She has also been in twice through our ER once June 09, 2024 when she was transferred to [facility] for GI bleed with cirrhosis and probable varices. The second time she was seen in the emergency department for a fall at the care home had a CT scan of the brain and ultimately went home on October 10, 2024. October 12, 2024 yesterday she returned with altered mental status was confused had paracentesis and also lactulose improving her confusion. Vitals/I&O/Wt Last Vital Signs Temp 97.2 F L 10/13/24 08:38 Pulse 123 H 10/13/24 10:00 Resp 19 H 10/13/24 10:00 BP 125/61 10/13/24 10:00 Pulse Ox 100 10/13/24 10:00 O2 Del Method Room Air 10/13/24 08:00 10/12/24 10/13/24 10/13/24 22:59 06:59 14:59 Intake Total 1180.000 / 1230.000 771.667 / 2001.667 584 / 584 Output Total 0 / 0 Balance 1180.000 / 1230.000 761.667 / 1991.667 584 / 584 Weight last 48 hrs Weight 58.876 kg Weight 26.308 kg Physical Exam Narrative: General well-developed thin chronically ill-appearing female with abdominal distention sclera not icteric CV regular rate and rhythm Lungs clear to auscultation bilaterally Abdomen positive bowel tones soft distended Calves 1+ edema Mentation patient is alert and oriented to [facility] and [place] but did not know the date. She did not know her condition. She did not know that she had cirrhosis Urinary Catheter Management: Kowalski: Cath Placed During This Visit: no Reason for Continuing Indwelling Catheter: Accurate Measurement of Urinary Output in Critically Ill Patients Data 10/13/24 03:32 10/13/24 03:32 Micro: Microbiology 10/12/24 12:48 Gram Stain - Final Pleural Fluid 10/12/24 13:30 Blood Culture - Preliminary Blood SPECIMEN COLLECTED 10/12/24 13:20 Blood Culture - Preliminary Blood SPECIMEN COLLECTED A&P Assessment and plan 1. Acute hepatic encephalopathy: Continue with lactulose. 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 STEPHANIE (acute kidney injury): Patient anuretic overnight and now oligoanuric but barely making urine. Dr. Charles is assisting from nephrology service. Speaking with patient Torin and Rayshawn the patient does not have a good understanding of her medical condition. I did professor of counseling her that she has cirrhosis with repeated fluid buildup in the abdomen chronic malnutrition and weight loss related to poor protein production and renal failure worsened by lack of perfusion. I do not recommend dialysis as I think it would cause suffering that would not be outweighed by the benefit. 3. Acute lactic acidosis: Treated with bicarb and fluid. Looks like she also has rhabdomyolysis with CK of 1842 4. Altered mental status: Patient is cooperative not agitated but mostly sleeping. After counseling she awakened and did not recall our explanation of her current condition 5. Anemia: Suspected blood loss anemia complicated by renal failure. Patient is receiving a unit of packed red cells. Plan: I spoke with patient as well as patient's son Torin and his girlfriend Rayshawn who is very familiar with the patient's history. Dr. Charles has also been on telemedicine this morning for meeting. If patient is not improving anticipate comfort care as the best option PDMP PDMP Reviewed: Not Reviewed Attestations Medical Necessity Statement*: Patient to the ICU with oliguric renal failure and hepatic encephalopathy. Will require greater than 2 midnights in hospital Coding Level of Care Code 67815 Diagnoses Acute hepatic encephalopathy K76.82 STEPHANIE (acute kidney injury) N17.9 Acute lactic acidosis E87.21 Altered mental status R41.82 Anemia D64.9 Time Spent (min) 60
[2024-10-13] MEDS: FUROsemide 10 mg/mL SDV 4mL 40 MG IVP (12:28)
[2024-10-13] MEDS: cefTRIAXone 1,000 mg SDV 1000 MG IVP (14:02)
--- NOTE | 2024-10-13 16:51 | USR_ITS ---
PROCEDURE INFORMATION: Exam: US Retroperitoneal, Complete, Kidneys and Bladder Exam date and time: 10/13/2024 9:34 AM Age: 79 years old Clinical indication: Condition or disease; Kidney or ureter condition; Other: Brennen TECHNIQUE: Imaging protocol: Real-time ultrasound of the retroperitoneum with image documentation. Complete exam focused on the bilateral kidneys and urinary bladder. COMPARISON: US abdomen limited [id number] 09/23/2024 8:14 AM FINDINGS: Partially visualized diminutive nodular cirrhotic hepatic morphology. Diffuse ascites. Gallbladder wall thickening measuring 1.0 cm secondary to hepatic pathology. Limited evaluation of the bilateral kidneys which are mildly atrophied with mild hyperechogenicity. Kowalski catheter within the bladder. US/US renal BI* [id number] IMPRESSION: Mild atrophied kidneys with hyperechogenicity consistent with renal disease.
[2024-10-13] MEDS: albumin 25 G/100 ML BAG 60 G IV (17:14)
[2024-10-13] MEDS: FUROsemide 10 mg/mL SDV 10mL 100 MG IVP (17:14)
--- NOTE | 2024-10-13 17:47 | PC.NURSE ---
Patient's heart rate has trended down throughout the day. Started around 120 and afib. Is currently in the 70's and afib. Occaisonally becoming bradycardic with heart rates in the 40's (strips in physical chart). Drug guide shows metoprolol is metabolized by liver and excreted by kidneys. Patient has poor function of both. Nurse alerted Dr mas. Received orders to stop metoprolol.
[2024-10-13 18:11] LABS: Hematocrit 25.5 % (36-47); Hemoglobin 8.50 g/dL (11.27-16.99); Mean Corpuscular HGB Conc 33.3 g/dL (30-55); Mean Corpuscular Hemoglobin 28.4 pg (27-33); Mean Corpuscular Volume 85.3 fl (85-98); Nucleated Red Blood Cells % 0 %; Platelet Count 106 10^3/cmm (157-399); Red Blood Count 2.99 10^6/uL (3.85-5.65); White Blood Count 7.76 10^3/uL (3.29-11.43)
--- NOTE | 2024-10-13 18:15 | PC.NURSE ---
Shift Summary: Mental status: Altered. Lethargic. Able to answer person and place questions, but she has delayed responses. Mental status has been variable, at times alert enough to take sips and oral meds, other times hard to wake up. Metoprolol discontinued due to periods of bradycardia, but near end of shift this seems to be resolving. 2 doses of lasix received today with no effect. Total urine output: 20mL
[2024-10-13 18:27] LABS: Anion Gap 23.4 (5-19); Blood Urea Nitrogen 43 mg/dL (8-23); Calcium 7.2 mg/dL (8.5-10.5); Carbon Dioxide 25 mmol/L (22-29); Chloride 87 mmol/L (98-107); Creatinine Clr Calc Pharmacy 8.3802; Glucose 342 mg/dL (65-115); Osmolality Calculated 296 mOsm/kg (285-295); Potassium 4.4 mmol/L (3.5-5.1); Sodium 131 mmol/L (136-145)
[2024-10-13 23:17] LABS: Estmated Average Glucose 100; Hemoglobin A1C 5.1 % (4.0-6.0)
[2024-10-13 23:18] LABS: Thyroid Stimulating Hormone 2.17 uIU/mL (0.27-4.20)
[2024-10-13 23:52] LABS: Iron 17 ug/dL (37-145); Total Iron Binding Capacity 109 mcg/dl; Unsaturated Iron Binding 92 ug/dL (112-347)
[2024-10-14] VITALS (24 sets, daily range): BP systolic 84–133; BP diastolic 41–80; PULSE 62–103; RESP 12–30; TEMP 35.9–36.6; O2SAT 86–99
[2024-10-14 00:28] LABS: Vitamin B12 > 2000 pg/mL (232-1245)
[2024-10-14 04:40] LABS: Glucose Urine UA Negative (Normal); Nitrate Urine Negative (Negative); Specific Gravity, Urine 1.013 (1.005-1.030)
[2024-10-14 04:45] LABS: Add Urine Microscopic? YES
[2024-10-14 04:55] LABS: Potassium, Radom Urine 17 mmol/L; Urine Random Chloride 102 mmol/L; Urine Random Sodium 115 mmol/L
[2024-10-14 05:09] LABS: UA Slide Review UA Slide Review Perf
[2024-10-14 06:24] LABS: Hematocrit 21.1 % (36-47); Hemoglobin 7.20 g/dL (11.27-16.99); Mean Corpuscular HGB Conc 34.1 g/dL (30-55); Mean Corpuscular Hemoglobin 28.8 pg (27-33); Mean Corpuscular Volume 84.4 fl (85-98); Nucleated Red Blood Cells % 0 %; Platelet Count 82 10^3/cmm (157-399); Red Blood Count 2.50 10^6/uL (3.85-5.65); White Blood Count 6.46 10^3/uL (3.29-11.43)
[2024-10-14 06:31] LABS: INR 1.62 (0.8-1.2); Prothrombin Time 20.30 SECONDS (12.1-14.9)
[2024-10-14 06:32] LABS: Partial Thromboplastin Time 48.6 SECONDS (23.9-36.7)
[2024-10-14 06:39] LABS: Alanine Aminotransferase 75 U/L (0-33); Albumin Level 3.2 g/dL (3.5-5.2); Alkaline Phosphatase 170 U/L (35-105); Anion Gap 25.5 (5-19); Aspartate Amino Transferase 354 U/L (0-32); Blood Urea Nitrogen 44 mg/dL (8-23); Calcium 7.6 mg/dL (8.5-10.5); Carbon Dioxide 21 mmol/L (22-29); Chloride 87 mmol/L (98-107); Creatinine Clr Calc Pharmacy 7.9417; Globulin 3.0 g/dL (1.3-4.6); Glucose 125 mg/dL (65-115); Magnesium 2.2 mg/dL (1.7-2.3); Osmolality Calculated 281 mOsm/kg (285-295); Potassium 4.5 mmol/L (3.5-5.1); Sodium 129 mmol/L (136-145); Total Protein 6.2 g/dL (6.6-8.7)
--- NOTE | 2024-10-14 07:44 | PC.NURSE ---
Addendum entered by Car Mcmanus RN 10/14/24 10:25: Physician communication: Nurse stopped Bicarb due to increased in size of ascitic abdomen, and crackles developing in lower lobes. Physician okay with this. ALso, blood pressure has been trending lower over the last 40 minutes. Currently 77/54. REceived orders for levophed. Original Note: Physician communication: Nurse stopped LR due to increased in size of ascitic abdomen, and crackles developing in lower lobes. Physician okay with this. ALso, blood pressure has been trending lower over the last 40 minutes. Currently 77/54. REceived orders for levophed.
[2024-10-14] MEDS: norepinephrine 4 MG/250 ML BAG 7.5 MG IV (07:47)
--- NOTE | 2024-10-14 08:08 | PC.SOCIAL ---
IMM Update Pg. 2 of IMM updated and reviewed with patient, who verbalized understanding. Copy provided.
--- NOTE | 2024-10-14 09:31 | P.PN_ITS ---
Subjective 2 Subjective: IVFs stopped Started on Levophed for low blood pressures, on IV albumin Medications: Reviewed: Yes Vitals/I&O/Wt Last Vital Signs Temp 97.7 F 10/14/24 06:00 Pulse 65 10/14/24 06:00 Resp 16 10/14/24 06:00 BP 110/63 10/14/24 06:00 Pulse Ox 99 10/14/24 05:00 O2 Del Method Room Air 10/13/24 17:00 10/13/24 10/14/24 10/14/24 22:59 06:59 14:59 Intake Total 666 / 1250 0 / 1250 747.5 / 747.5 Output Total Balance 646 / 1230 -20 / 1210 747.5 / 747.5 Weight last 48 hrs Weight 59.874 kg Weight 58.876 kg Weight 26.308 kg Physical Exam 2 Narrative: Lethargic, room air, no acute distress PERRLA No JVD S1-S2 regular rate and rhythm per report Lungs with bilateral crackles per report Abdomen distended sof+ ascites Has no edema Urinary Catheter Management: Kowalski: Cath Placed During This Visit: no Reason for Continuing Indwelling Catheter: Accurate Measurement of Urinary Output in Critically Ill Patients Data 10/14/24 06:11 10/14/24 06:11 Micro: Microbiology 10/12/24 12:48 Gram Stain - Final Pleural Fluid Body Fluid Culture - Preliminary 10/12/24 13:30 Blood Culture - Preliminary Blood NEGATIVE TO DATE 10/12/24 13:20 Blood Culture - Preliminary Blood NEGATIVE TO DATE A&P Assessment and plan 1. STEPHANIE (acute kidney injury): Plan: 1. Acute on chronic kidney disease: Prior creatinine was 2.9 in May 2024. Now has STEPHANIE with a creatinine of 5.1 on presentation likely prerenal and ATN in the setting of possible acute infection. HRS possible -Noted mildly elevated CPK levels - Patient became hypotensive today, no improvement in renal function , remains anuric - Currently on IV albumin and Levophed -UA with 2+ protein and 3+ blood in the setting of UTI - Given liver cirrhosis with portal hypertension and hypotensive currently, patient will not tolerate dialysis. Discussed with patient's family at bedside on a video yesterday and explained overall poor prognosis 2. Severe metabolic acidosis, due to lactic acidosis and STEPHANIE, status post bicarbonate drip 3. UTI, management per primary team 4. Altered mental status, likely metabolic encephalopathy, baseline not known 5. Liver cirrhosis, with history of prior paracentesis, Patient evaluated using audiovisual cart. Time spent 40 minutes. PDMP PDMP Reviewed: Not Reviewed Attestations 2 Medical Necessity Statement*: Per medicine team Coding Level of Care Code Acute Code for [facility] Fwd Diagnoses STEPHANIE (acute kidney injury) N17.9
[2024-10-14] MEDS: albumin 25 G/100 ML BAG 60 G IV (09:42)
[2024-10-14] MEDS: morphine 4 mg/mL SDV 1 mL IVP ×3 (13:53→20:53)
[2024-10-14] MEDS: saliva stimulant spray 30 mL Btl 1 SPRAY MUCOUS MEM (13:57)
--- NOTE | 2024-10-14 14:57 | P.PN_ITS ---
Subjective 2 Subjective: Hospital course, labs appreciated. Examination patient laying in bed. Moaning with pain occasionally. Wakes up to physical stimulus. On waking up alert to self. Having garbled and lethargic voice. Falls to sleep easily. Medications: Reviewed: Yes Vitals/I&O/Wt Last Vital Signs Temp 97.4 F L 10/14/24 09:00 Pulse 67 10/14/24 12:00 Resp 16 10/14/24 13:53 BP 132/50 10/14/24 12:00 Pulse Ox 96 10/14/24 13:53 O2 Del Method Room Air 10/14/24 09:00 10/13/24 10/14/24 10/14/24 22:59 06:59 14:59 Intake Total 666 / 1250 0 / 1250 766.375 / 766.375 Output Total Balance 646 / 1230 -20 / 1210 766.375 / 766.375 Weight last 48 hrs Weight 59.874 kg Weight 58.876 kg Weight 26.308 kg Physical Exam 2 Narrative: General well-developed thin chronically ill-appearing female with abdominal distention sclera not icteric CV regular rate and rhythm Lungs clear to auscultation bilaterally Abdomen positive bowel tones soft distended Calves 1+ edema Mentation patient is alert and oriented to [facility] and [place] but did not know the date. She did not know her condition. She did not know that she had cirrhosis Urinary Catheter Management: Kowalski: Cath Placed During This Visit: no Reason for Continuing Indwelling Catheter: Accurate Measurement of Urinary Output in Critically Ill Patients Data 10/14/24 06:11 10/14/24 06:11 Micro: Microbiology 10/12/24 12:48 Gram Stain - Final Pleural Fluid Body Fluid Culture - Preliminary 10/12/24 13:30 Blood Culture - Preliminary Blood NEGATIVE TO DATE 10/12/24 13:20 Blood Culture - Preliminary Blood NEGATIVE TO DATE A&P Assessment and plan 1. Acute hepatic encephalopathy: Continue with lactulose. 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 STEPHANIE (acute kidney injury): Patient anuretic overnight and now oligoanuric but barely making urine. Dr. Charles is assisting from nephrology service. Speaking with patient Torin and Rayshawn the patient does not have a good understanding of her medical condition. I did nurses' association counselor her that she has cirrhosis with repeated fluid buildup in the abdomen chronic malnutrition and weight loss related to poor protein production and renal failure worsened by lack of perfusion. I do not recommend dialysis as I think it would cause suffering that would not be outweighed by the benefit. 3. Acute lactic acidosis: Treated with bicarb and fluid. Looks like she also has rhabdomyolysis with CK of 1842 4. Altered mental status: Patient is cooperative not agitated but mostly sleeping. After counseling she awakened and did not recall our explanation of her current condition 5. Anemia: Suspected blood loss anemia complicated by renal failure. Patient is receiving a unit of packed red cells. 6. Hyponatremia: 7. Rhabdomyolysis: 8. Thrombocytopenia: 9. Liver dysfunction: 10. Goals of care, counseling/discussion: 11. Shock: Plan: Goals of care discussion: Given concerns for significant severe acute renal dysfunction in setting of liver dysfunction with concerns for hepatorenal syndrome. Patient developing hypotension. Is oliguric. Started on Levophed earlier in the day. Continues to have poor mentation. Further goals of care discussions were done with the patient's son Torin/CARLY over the phone. We discussed unfortunately patient does have significant kidney dysfunction and liver dysfunction which is leading to accumulation of toxic material in the body causing her to have worsening mentation, worsening acidosis and further dysfunction of the organs with concerns for hepatorenal syndrome, patient developing shock requiring vasopressors. Discussed given her oliguric renal dysfunction there is a high chance that she will require dialysis and currently with her hemodynamics she is not a good candidate for hemodialysis either as per nephrology team. We discussed unfortunately patient at baseline has poor quality of life there is a small chance that she can improve but it will take a long while and it can further deteriorate her quality of life and would most likely help only with quantity of life. Son verbalized understanding and states he has been worried about the same and would want to concentrate more on quality of life and patient's comfort. Discussed options with possible transition to comfort care. Son verbalized understanding and wants to start on comfort care management. We discussed comfort care would need to stop active treatment, concentrate on her comfort with Ativan and morphine and as needed while nature takes its own course which could mean . Son verbalized understanding and is agreeable. Comfort care orders placed. Case management alerted. PDMP PDMP Reviewed: Not Reviewed Attestations 2 Medical Necessity Statement*: Requires further hospitalization while comfort care is arranged for patient admitted with acute renal dysfunction in setting of liver dysfunction with concerns for hepatorenal syndrome, shock Diagnoses Acute hepatic encephalopathy K76.82 STEPHANIE (acute kidney injury) N17.9 Acute lactic acidosis E87.21 Altered mental status R41.82 Anemia D64.9 Hyponatremia E87.1 Rhabdomyolysis M62.82 Thrombocytopenia D69.6 Liver dysfunction K76.89 Goals of care, counseling/discussion Z71.89 Shock R57.9
--- NOTE | 2024-10-14 18:23 | PC.NURSE ---
Shift SUmmary: Uneventful shift. transitioned to comfort measures. Has occasionally needed morphine and repositioning for pain relief. Resting comfortably at this time.
[2024-10-14] MEDS: LORazepam 1 MG/0.5 ML injection 2 MG IVP (20:54)
[2024-10-15] VITALS (9 sets, daily range): BP systolic 70–95; BP diastolic 38–59; PULSE 68–101; RESP 12–21; TEMP 36.1; O2SAT 90
[2024-10-15 05:29] LABS: Bacillus cereus group Not Detected (NOT DETECT); Bacillus subtillis group Not Detected (NOT DETECT); Corynebacterium Not Detected (NOT DETECT); Cutibacterium acnes (P.acnes) Not Detected (NOT DETECT); Enterococcus faecalis Not Detected (NOT DETECT); Enterococcus faecium Not Detected (NOT DETECT); Listeria Not Detected (NOT DETECT); Micrococcus Not Detected (NOT DETECT); Pan Candida Not Detected (NOT DETECT); Pan Gram-Negative Not Detected (NOT DETECT); Staphylococcus epidermidis Not Detected (NOT DETECT); Staphylococcus lugdunensis Not Detected (NOT DETECT); Staphylococcus species Not Detected (NOT DETECT); Streptococcus anginosus group Not Detected (NOT DETECT); Streptococcus pyogenes Not Detected (NOT DETECT); Streptococcus species Not Detected (NOT DETECT)
--- NOTE | 2024-10-15 08:46 | PC.NURSE ---
Non admin scheduled tramadol due to patient being comfort care and unable to swallow. Notified Dr. Corbin, who gave orders to discontinue medication. See orders.
--- NOTE | 2024-10-15 08:48 | PM.DCS ---
Discharge Providers Date of Admission: 10/12/24 14:56 Date of Discharge: October 15, 2024 Attending Provider at Admission: Panchito Dempsey MD Attending Provider at Discharge: Wander Corbin MD Primary Care Provider: Henry Villanueva DO Diagnoses at Discharge Discharge Diagnosis 1. Acute hepatic encephalopathy: 2. STEPHANIE (acute kidney injury): 3. Acute lactic acidosis: 4. Altered mental status: 5. Anemia: 6. Hyponatremia: 7. Rhabdomyolysis: 8. Thrombocytopenia: 9. Liver dysfunction: 10. Goals of care, counseling/discussion: 11. Shock: Reason for Visit Reason for Visit: ams Brief History: As per HPI Petty Webb is a 79 year old female with history of cirrhosis lives at a longterm facility and brought in for altered mental status. She was found to be slow to respond and last paracentesis was a month ago. Patient was treated with lactulose in the emergency department and also had paracentesis of 2.5 L fluid. She admitted to some confusion Hospital Course Hospital Course Patient was admitted to the ICU further evaluation and management of altered mental status, acute kidney injury in setting of decompensated hepatic encephalopathy and transaminitis. She was treated with IV hydration. Nephrology was consulted. There was a concern for possible hepatorenal syndrome. She did develop shock for which she was on Levophed intermittently. Patient continued to have poor mentation. Further goals of care discussions were done with the patient's son Torin/CARLY over the phone. We discussed unfortunately patient does have significant kidney dysfunction and liver dysfunction which is leading to accumulation of toxic material in the body causing her to have worsening mentation, worsening acidosis and further dysfunction of the organs with concerns for hepatorenal syndrome, patient developing shock requiring vasopressors. Discussed given her oliguric renal dysfunction there is a high chance that she will require dialysis and currently with her hemodynamics she is not a good candidate for hemodialysis either as per nephrology team. We discussed unfortunately patient at baseline has poor quality of life there is a small chance that she can improve but it will take a long while and it can further deteriorate her quality of life and would most likely help only with quantity of life. Son verbalized understanding and states he has been worried about the same and would want to concentrate more on quality of life and patient's comfort. Discussed options with possible transition to comfort care. Son verbalized understanding and wants to start on comfort care management. We discussed comfort care would need to stop active treatment, concentrate on her comfort with Ativan and morphine and as needed while nature takes its own course which could mean . Son verbalized understanding and is agreeable. She has been discharged back to SNF with comfort care status. Physical Exam Narrative: Deferred given comfort care status. Urinary Catheter Management: Kowalski: Cath Placed During This Visit: no Reason for Continuing Indwelling Catheter: Accurate Measurement of Urinary Output in Critically Ill Patients Discharge Data Studies Completed and Pending Completed Studies During Hospitalization Category Date Time Status XR chest 1V portable [id number] Stat Exams 10/12/24 11:33 Completed US renal BI* [id number] Routine Ultrasound 10/13/24 16:51 Completed Pending at discharge Category Date Time Status Blood Culture Stat Lab 10/12/24 13:30 Results Body Fluid Culture & GS Routine Lab 10/12/24 12:48 Results Occult Blood Stool [Immunochemical Fecal OCB] Routine Lab 10/13/24 05:56 Uncollected Urine Culture Routine Lab 10/12/24 17:16 Received Radiology Impressions Chest X-Ray 10/12/24 11:33 IMPRESSION: Mild bibasilar atelectasis/opacities in the setting of low lung volumes. Renal Ultrasound 10/13/24 16:51 IMPRESSION: Mild atrophied kidneys with hyperechogenicity consistent with renal disease. Laboratory Results WBC 6.46 10^3/uL (3.29-11.43) 10/14/24 06:11 RBC 2.50 10^6/uL (3.85-5.65) L 10/14/24 06:11 Hgb 7.20 g/dL (11.27-16.99) L 10/14/24 06:11 Hct 21.1 % (36-47) L 10/14/24 06:11 MCV 84.4 fl (85-98) L 10/14/24 06:11 MCH 28.8 pg (27-33) 10/14/24 06:11 MCHC 34.1 g/dL (30-55) 10/14/24 06:11 RDW 15.7 % (12.1-15.1) H 10/14/24 06:11 Plt Count 82 10^3/cmm (157-399) L 10/14/24 06:11 MPV 9.5 fL (7.4-10.4) 10/14/24 06:11 Neut % (Auto) 89.7 % 10/14/24 06:11 Lymph % (Auto) 3.9 % 10/14/24 06:11 Mcminn % (Auto) 2.6 % 10/14/24 06:11 Eos % (Auto) 2.9 % 10/14/24 06:11 Baso % (Auto) 0.3 % 10/14/24 06:11 Neut # (Auto) 5.79 10^3/uL (1.8-7.7) 10/14/24 06:11 Lymph # (Auto) 0.3 10^3/uL (0.8-4.8) L 10/14/24 06:11 Mcminn # (Auto) 0.2 10^3/uL (0.2-0.9) 10/14/24 06:11 Eos # (Auto) 0.2 10^3/uL (0.0-0.8) 10/14/24 06:11 Baso # (Auto) 0.0 10^3/uL (0.0-0.1) 10/14/24 06:11 Nucleated RBC % (auto) 0 % 10/14/24 06:11 Total Counted Not Reportable 10/12/24 12:48 Nucleated RBCs # 0.0 /100WBC 10/14/24 06:11 ESR 61 mm/hr (0-15) H 10/12/24 12:10 PT 20.30 SECONDS (12.1-14.9) H 10/14/24 06:11 INR 1.62 (0.8-1.2) H 10/14/24 06:11 APTT 48.6 SECONDS (23.9-36.7) H 10/14/24 06:11 Sodium 129 mmol/L (136-145) L 10/14/24 06:11 Potassium 4.5 mmol/L (3.5-5.1) 10/14/24 06:11 Chloride 87 mmol/L (98-107) L 10/14/24 06:11 Carbon Dioxide 21 mmol/L (22-29) L 10/14/24 06:11 Anion Gap 25.5 (5-19) H 10/14/24 06:11 BUN 44 mg/dL (8-23) H 10/14/24 06:11 Creatinine 5.1 mg/dL (0.5-0.9) H 10/14/24 06:11 GFR Calculation Not Reportable 10/14/24 06:11 Glucose 125 mg/dL (65-115) H 10/14/24 06:11 POC Glucose 155 mg/dL (70-110) H 10/13/24 11:59 Estimat Average Glucose 100 10/13/24 03:32 Hemoglobin A1c 5.1 % (4.0-6.0) 10/13/24 03:32 Calculated Osmolality 281 mOsm/kg (285-295) L 10/14/24 06:11 Lactic Acid 8.3 mmol/L (0.5-2.2) H* 10/12/24 12:10 Lactic Acid (Sepsis) 7.5 mmol/L (0.5-2.2) H* 10/12/24 15:24 Calcium 7.6 mg/dL (8.5-10.5) L 10/14/24 06:11 Phosphorus 4.3 mg/dL (2.5-4.5) 10/14/24 06:11 Magnesium 2.2 mg/dL (1.7-2.3) 10/14/24 06:11 Iron 17 ug/dL (37-145) L 10/13/24 03:32 TIBC 109 mcg/dl 10/13/24 03:32 % Saturation 15.5 % (20-50) L 10/13/24 03:32 Unsat Iron Binding 92 ug/dL (112-347) L 10/13/24 03:32 Total Bilirubin 1.4 mg/dL (0.15-1.2) H 10/14/24 06:11 AST 354 U/L (0-32) H 10/14/24 06:11 ALT 75 U/L (0-33) H 10/14/24 06:11 Alkaline Phosphatase 170 U/L (35-105) H 10/14/24 06:11 Ammonia 70 umol/L (11-51) H 10/12/24 12:10 Creatine Kinase 1842 U/L (26-192) H* 10/13/24 03:32 Total Protein 6.2 g/dL (6.6-8.7) L 10/14/24 06:11 Albumin 3.2 g/dL (3.5-5.2) L 10/14/24 06:11 Globulin 3.0 g/dL (1.3-4.6) 10/14/24 06:11 Vitamin B12 > 2000 pg/mL (232-1245) H 10/13/24 03:32 Folate > 20.0 ng/mL (4.8-37.3) 10/14/24 06:11 TSH 2.17 uIU/mL (0.27-4.20) 10/13/24 03:32 Urine Color Dark yellow (Yellow) A 10/14/24 04:28 Urine Appearance Turbid (CLEAR) A 10/14/24 04:28 Urine pH 5.0 (5-7) 10/14/24 04:28 Ur Specific Halma 1.013 (1.005-1.030) 10/14/24 04:28 Urine Protein 3+ (Negative) A 10/14/24 04:28 Urine Glucose (UA) Negative (Normal) 10/14/24 04:28 Urine Ketones Negative (Negative) 10/14/24 04:28 Urine Blood 3+ (Negative) A 10/14/24 04:28 Urine Nitrate Negative (Negative) 10/14/24 04:28 Urine Bilirubin Negative (Negative) 10/14/24 04:28 Urine Urobilinogen 1.0 mg/dL (Negative) 10/14/24 04:28 Ur Leukocyte Esterase 3+ (Negative) A 10/14/24 04:28 Urine RBC >100 /hpf (0-2) H 10/14/24 04:28 Urine WBC >100 /hpf (0-5) H 10/14/24 04:28 Ur Squamous Epith Cells 21-50 /hpf (0-5) H 10/14/24 04:28 Amorphous Sediment Not Reportable 10/14/24 04:28 Urine Bacteria 4+ /hpf (NONE) H 10/14/24 04:28 Hyaline Casts 20.30 /lpf 10/14/24 04:28 Urine Mucus 2+ /hpf 10/12/24 14:02 Urine Yeast 2+ /hpf H 10/14/24 04:28 Ur Random Sodium 115 mmol/L 10/14/24 04:28 Ur Random Potassium 17 mmol/L 10/14/24 04:28 Ur Random Chloride 102 mmol/L 10/14/24 04:28 Urine Creatinine 38 mg/dL (28-217) 10/14/24 04:28 Fluid Albumin 1.1 g/dL 10/12/24 12:48 Pleural Color Pale yellow (Pale Yellow) 10/12/24 12:48 Pleural Appearance Cloudy (CLEAR) 10/12/24 12:48 Pleural pH 7.00 (6.5-7.5) 10/12/24 12:48 Pleural WBC 25.000 /uL (0-1000) 10/12/24 12:48 Pleural RBC 1.000 10^3/uL 10/12/24 12:48 Pleural Other Cells Not Reportable 10/12/24 12:48 Pleural Polynuclear % 44 % 10/12/24 12:48 Pleural Mononuclear % 56 % 10/12/24 12:48 Pleural Total Protein 2.1 g/dL 10/12/24 12:48 Pleural LDH 111 U/L 10/12/24 12:48 Pleural Glucose 99.0 mg/dL 10/12/24 12:48 C. difficile (PCR) Negative (Negative) 10/13/24 05:23 Path Cons w/Slide Yes 10/12/24 12:48 Blood Type AB Positive 10/13/24 06:23 Rho(D) Type Rh positive 10/13/24 06:23 Antibody Screen Negative 10/13/24 06:23 Crossmatch See Detail 10/13/24 06:23 Vitals Last Vital Signs Temp 96.6 F L 10/14/24 20:00 Pulse 101 H 10/15/24 08:00 Resp 21 H 10/15/24 08:00 BP 76/38 10/15/24 08:00 Pulse Ox 96 10/14/24 20:53 O2 Del Method Room Air 10/14/24 09:00 Discharge Plan Discharge Patient Disposition: Hospice - Medical Facility Condition: Stable Prescriptions: Continued metoprolol succinate 100 mg tablet extended release 24 hr 25 mg PO DAILY aspirin [Elder Low Dose Aspirin] 81 mg Tablet,Delayed Release (Dr/Ec) 81 mg PO DAILY tramadol 50 mg tablet 50 mg PO DAILY spironolactone 25 mg tablet 50 mg PO DAILY magnesium hydroxide [Milk of Magnesia] 400 mg/5 mL Suspension 30 ml PO DAILY PRN (Reason: Constipation) pantoprazole 40 mg tablet,delayed release (DR/EC) 40 mg PO DAILY furosemide 20 mg tablet 20 mg PO DAILY rosuvastatin 40 mg tablet 40 mg PO DAILY thiamine HCl (vitamin B1) 100 mg Tablet 100 mg PO DAILY folic acid 1 mg Tablet 1 mg PO DAILY carboxymethylcellulose sodium [Refresh Liquigel] 1 % Drops, Liquid Gel 1 drp OPHTHALMIC (EYE) BID polyethylene glycol 3350 [Miralax] 17 gram Powder In Packet 17 g PO DAILY benzonatate 100 mg capsule 100 mg PO TID acetaminophen [Tylenol] 325 mg Tablet 650 mg feeding tube Q4H PRN (Reason: pain/fever) Discharge Order = DC NOW: Discharge Order (Routine); Ordered 10/15/24 Ordered By: Wander Corbin Referrals: [facility] [Outside] [facility] [Outside] Henry Villanueva DO [Primary Care Provider, Internal Medicine] Discharge Diet: Usual diet Discharge Activity: Bedrest Patient Instructions: Altered Mental Status (ED), Opioid Safety, Pain Management, Patient Portal & Himanshu Instructions Activity Restrictions/Additional Instructions: Hospice care Discharge Attestations Time Spent in Discharge Care*: greater than 30 min Specific Discharge Activities: educating and/or supporting family/caregiver, discussing with pcp/other providers, discussing with foster care case manager/social workers/dc planners, documenting/other paperwork and evaluating patient/reviewing data Status at Discharge: Cognitive status at discharge: severely impaired cognition, Behavioral status at discharge: cooperative, Functional status at discharge: bed bound, Overall status at discharge: patient has a new baseline Quality Metrics Clinical Quality Measures [ No reported AMI, CVA or VTE this stay] Coding Level of Care Code 20954 Total time (in minutes) for Discharge: 55 Diagnoses Acute hepatic encephalopathy K76.82 STEPHANIE (acute kidney injury) N17.9 Acute lactic acidosis E87.21 Altered mental status R41.82 Anemia D64.9 Hyponatremia E87.1 Rhabdomyolysis M62.82 Thrombocytopenia D69.6 Liver dysfunction K76.89 Goals of care, counseling/discussion Z71.89 Shock R57.9
[2024-10-15] MEDS: morphine 4 mg/mL SDV 1 mL IVP (12:29)
[2024-10-15 12:33] LABS: SARS Covid-2 Antigen Negative (Negative)
--- NOTE | 2024-10-15 12:42 | PC.NURSE ---
Patient received DC orders with comfort care back to [facility]. All IVs removed. Report called to Mary. Will call Cheikh Martino. Dex still in place. All belongings will be sent with patient.
--- NOTE | 2024-10-15 12:45 | PC.NURSE ---
Report called to shanice elmore at [phone]
--- NOTE | 2024-10-15 15:20 | PC.NURSE ---
[facility] transport arrived [id number]
--- NOTE | 2024-10-15 15:21 | PC.NURSE ---
Called son Ty to notify patient going to [facility]
== END 2024-10-15 15:19 | disposition hospice, inpatient (51) | DRG 441 ==
LOC: ER 14:46 → ER IP 15:09 → ICU 17:37
PROVIDERS: Hospitalist; Internal Medicine; Admitting Provider Internal Medicine; Emergency Provider Family Medicine; PCP Internal Medicine; Visit Provider Student in an Organized Health Care Education/Training Program
DX: K76.82 Hepatic encephalopathy (principal); K76.7 Hepatorenal syndrome; E46 Unspecified protein-calorie malnutrition; E87.21 Acute metabolic acidosis; R18.8 Other ascites; F05 Delirium due to known physiological condition; N39.0 Urinary tract infection, site not specified; N17.9 Acute kidney failure, unspecified; K76.6 Portal hypertension; R57.9 Shock, unspecified; E87.1 Hypo-osmolality and hyponatremia; M62.82 Rhabdomyolysis; Z51.5 Encounter for palliative care; Z66 Do not resuscitate; D69.6 Thrombocytopenia, unspecified; D63.1 Anemia in chronic kidney disease; K74.60 Unspecified cirrhosis of liver; N18.9 Chronic kidney disease, unspecified; Z79.899 Other long term (current) drug therapy; Z79.82 Long term (current) use of aspirin; Z79.891 Long term (current) use of opiate analgesic; Z68.22 Body mass index [BMI] 22.0-22.9, adult
CPT/HCPCS: 36415; 36416; 36430; 51702; 70450; 71045; 76770; 80048; 80053; 80503; 81001; 82042; 82140; 82436; 82550; 82570; 82607; 82746; 82945; 82962; 83036; 83540; 83550; 83605; 83615; 83735; 83986; 84100; 84133; 84157; 84300; 84443; 85025; 85610; 85651; 85730; 86850; 86900; 86920; 87040; 87070; 87075; 87086; 87150; 87205; 87426; 87493; 89050; 93005; 96365; 96372; 96374; 96375; 96376; 99284; 99285; J0696; J1644; J1938; J2060; J2270; J7030; J7070; J9999; P9016; P9046; P9047; Q3014